=== PATIENT | female | born 1975 | race Caucasian/White ===

== ENCOUNTER 2018-11-15 | Emergency (ER) | payer SELFPAY ==
[2018-11-15 00:15] VITALS: BP 145/84
== END 2018-11-15 01:30 | disposition left against medical advice (07) ==
LOC: ER
DX: Z53.21 Procedure and treatment not carried out due to patient leaving prior to being seen by health care provider (principal); M79.606 Pain in leg, unspecified

== ENCOUNTER 2018-11-23 01:34 | Emergency (ER) | payer SELFPAY ==
--- NOTE | 2018-11-23 01:58 | ER Document Report ---
ED Medical Screen (RME) - General Chief Complaint: Leg Pain Stated Complaint: LEFT FOOT/LEG SWELLING Time Seen by Provider: 11/23/18 01:54 Mode of Arrival: Wheelchair Information source: Patient Notes: This 43-year-old female with history of diabetes complaints of left foot pain and swelling the past 6 days with no trauma. Reports she came to home [facility] on November 15 but left without being seen because we took too long. She went to another hospital had Doppler done was negative for blood clot. They treated her for muscle cramps with muscle relaxers, she took 2 vicodins she had from 2017 an d nothing is helping the pain. I offered patient a Percocet she reports it makes her deathly ill. I also offered her Toradol and she laughed at me. I have greeted and performed a rapid initial assessment of this patient. A comprehensive ED assessment and evaluation of the patient, analysis of test results and completion of the medical decision making process will be conducted by additional ED providers.
[2018-11-23 02:11] LABS: ABSOLUTE BASOPHILS # (AUTO) 0.1 10^3/uL (0.0-0.2); ABSOLUTE EOSINOPHILS # (AUTO) 0.2 10^3/uL (0.0-0.6); ABSOLUTE LYMPHOCYTES (AUTO) 2.5 10^3/uL (0.5-4.7); ABSOLUTE MONOCYTES (AUTO) 0.5 10^3/uL (0.1-1.4); ABSOLUTE NEUT (AUTO) 6.3 10^3/uL (1.7-8.2); BASOPHILS % (AUTO) 0.6 % (0-2); EOSINOPHILS % (AUTO) 2.1 % (0-6); HEMATOCRIT 33.9 % (36.0-47.0); HEMOGLOBIN 10.4 g/dL (12.0-15.5); LYMPHOCYTES % (AUTO) 26.1 % (13-45); MEAN CORPUSCULAR HEMOGLOBIN 20.8 pg (27.0-33.4); MEAN CORPUSCULAR HGB CONC 30.8 g/dL (32.0-36.0); MEAN CORPUSCULAR VOLUME 68 fl (80-97); MONOCYTES % (AUTO) 5.1 % (3-13); PLATELET COUNT 277 10^3/uL (150-450); RED BLOOD COUNT 5.01 10^6/uL (3.72-5.28); RED CELL DISTRIBUTION WIDTH 17.7 % (11.5-14.0); SEGMENTED NEUTROPHILS % (AUTO) 66.1 % (42-78); TOTAL CELLS COUNTED % (AUTO) 100 %; WHITE BLOOD COUNT 9.5 10^3/uL (4.0-10.5)
[2018-11-23 02:26] LABS: ALKALINE PHOSPHATASE 102 U/L (38-126); ANION GAP 13 (5-19); ASPARTATE AMINO TRANSFERASE 13 U/L (14-36); BILIRUBIN,DIRECT 0.1 mg/dL (0.0-0.4); BILIRUBIN,TOTAL 0.4 mg/dL (0.2-1.3); BLOOD UREA NITROGEN 8 mg/dL (7-20); CALCIUM 9.8 mg/dL (8.4-10.2); CARBON DIOXIDE 21 mmol/L (22-30); CHLORIDE 102 mmol/L (98-107); GLUCOSE 341 mg/dL (75-110); POTASSIUM 4.2 mmol/L (3.6-5.0); TOTAL PROTEIN 7.3 g/dL (6.3-8.2)
[2018-11-23 02:37] LABS: APPEARANCE,URINE SLIGHTLY-CLOUDY; BILIRUBIN,URINE NEGATIVE (NEGATIVE); COLOR,URINE YELLOW; GLUCOSE, URINE >=500 mg/dL (NEGATIVE); KETONES,URINE NEGATIVE (NEGATIVE); LEUKOCYTE ESTERASE,URINE NEGATIVE (NEGATIVE); NITRITE,URINE NEGATIVE (NEGATIVE); PROTEIN,URINE NEGATIVE (NEGATIVE); URINE SPECIFIC GRAVITY 1.025; UROBILINOGEN,URINE NEGATIVE mg/dL (<2.0)
--- NOTE | 2018-11-23 02:52 | RADIOLOGY REPORT (SQ) ---
Left foot three view on 11/23/2018 at 2:31 AM CLINICAL INDICATION: Left foot pain COMPARISON: None FINDINGS: Moderate-sized plantar calcaneal spur is noted. There are no fractures. Visualized joints are well aligned. No other bony abnormality is noted. IMPRESSION: Plantar calcaneal spur with no acute bony abnormality.
[2018-11-23] MEDS ORDERED: MORPHINE SULFATE IR 15 MG TABLET PO ONE (04:00)
--- NOTE | 2018-11-23 04:03 | ER Document Report ---
ED Extremity Problem, Lower - General Chief Complaint: Leg Swelling Stated Complaint: LEFT FOOT/LEG SWELLING Time Seen by Provider: 11/23/18 01:54 Primary Care Provider: [facility] [Provider Group] - Follow up as needed Mode of Arrival: Wheelchair Notes: Patient is a 43-year-old female that comes to the emergency department for chief complaint of left foot pain. She states that she has been very immobile recently, she states she is swelling in the left foot compared to the right, she states she had a lot more swelling towards the upper leg. She states she had a Doppler of the left leg which was negative, she also states the swelling was higher up but now is mainly in the lower leg and foot. She states since the swelling began about 3 days ago on her foot she has had a lot of pain and she cannot get any rest. She denies injury, fever/chills. She does have diabetes and her A1c is over 10 but she denies history of diabetic neuropathy. She denies previous history of blood clot, she is a former smoker. She states she recently moved back to the area and has upcoming appointments scheduled. TRAVEL OUTSIDE OF THE [place] IN LAST 30 DAYS: No Past Medical History - General Information source: Patient - Social History Smoking Status: Former Smoker Frequency of alcohol use: None Drug Abuse: None Lives with: Family Family History: Reviewed & Not Pertinent Patient has suicidal ideation: No Patient has homicidal ideation: No Endocrine Medical History: Reports: Hx Diabetes Mellitus Type 2 - Immunizations Immunizations up to date: Yes Hx Diphtheria, Pertussis, Tetanus Vaccination: Yes Review of Systems - Review of Systems Constitutional: No symptoms reported EENT: No symptoms reported Cardiovascular: No symptoms reported Respiratory: No symptoms reported Gastrointestinal: No symptoms reported Genitourinary: No symptoms reported Female Genitourinary: No symptoms reported Musculoskeletal: See HPI Skin: See HPI Hematologic/Lymphatic: No symptoms reported Neurological/Psychological: No symptoms reported Physical Exam - Vital signs Vitals: Temp Pulse Resp BP Pulse Ox 98.1 F 93 16 146/89 H 99 11/23/18 01:53 11/23/18 01:53 11/23/18 01:53 11/23/18 01:53 11/23/18 01:53 - Notes Notes: GENERAL: Alert, interacts well. HEAD: Normocephalic, atraumatic. EYES: Pupils equal, round, and reactive to light. Extraocular movements intact. ENT: Oral mucosa moist, tongue midline. Oropharynx unremarkable. Airway patent. Nares patent, no nasal septal hematoma, TM's intact. NECK: Full range of motion. Supple. Trachea midline. LUNGS: Clear to auscultation bilaterally, no wheezes, rales, or rhonchi. No respiratory distress. HEART: Regular rate and rhythm. No murmur ABDOMEN: Soft, non-tender. Non-distended. Bowel sounds present in all 4 quadrants. GENITOURINARY: Deferred EXTREMITIES: There is mild swelling of the left foot and lower leg generally, no significant pitting edema however, pulse intact at the dorsalis pedis, capillary refill and sensation intact, there is general tenderness over the top of the foot and lower leg. No abnormal erythema, induration, fluctuance, range of motion of the ankle intact, normal knee, hip exam. BACK: no cervical, thoracic, lumbar midline tenderness. No saddle anesthesia, normal distal neurovascular exam. Moves all extremities in full range of motion. NEUROLOGICAL: Alert and oriented x3. Normal speech. Cranial nerves II through XII grossly intact. PSYCH: Irritable SKIN: Warm, dry, normal turgor. No rashes or lesions noted. Course - Re-evaluation Re-evalutation: Patient has good distal pulses, normal warmth of the foot, normal coloration of the foot, there is some mild swelling on the left foot compared to the right but no severe edema. The entire foot appears to have some tenderness to palpation, patient continually states that the foot hurts. There is no injury, there is no evidence of compartment syndrome. Patient reports recent negative Doppler so I do not suspect a DVT. I suspect pain is mainly either from soft tissue swelling which might be from recent Mac's cyst rupture although this is not definite (patient did say that the swelling was mainly at the back of her leg at the knee before this resolved and the swelling was in the lower leg). My strong suspicion however is neuropathy with long-term uncontrolled insulin-dependent diabetes. Blood glucose is 300s here, patient declines treatment for this, states this is actually good for her. CBC nonspecific, chemistry nonspecific otherwise, no acidosis. X-ray with spurring of the calcaneus but patient really does not have tenderness underneath the foot suggesting plantar fasciitis component. I discussed with patient. Provided with treatment including compression stocking and diuresis, starting on gabapentin, patient was discussed with Dr. England. Discussed follow-up and return precautions. Patient does state understanding and agreement with plan. - Vital Signs Vital signs: Temp Pulse Resp BP Pulse Ox 98.2 F 79 19 160/89 H 100 11/23/18 05:03 11/23/18 05:03 11/23/18 05:03 11/23/18 05:03 11/23/18 05:03 - Laboratory Result Diagrams: 11/23/18 02:00 11/23/18 02:00 Laboratory results interpreted by me: 11/23/18 11/23/18 11/23/18 02:00 02:00 02:23 Hgb 10.4 L Hct 33.9 L MCV 68 L MCH 20.8 L MCHC 30.8 L RDW 17.7 H Sodium 136.0 L Carbon Dioxide 21 L Glucose 341 H AST 13 L Urine Glucose (UA) >=500 H Discharge - Discharge Clinical Impression: Swelling of left foot, Left foot pain, Hyperglycemia Condition: Stable Disposition: HOME, SELF-CARE Additional Instructions: The x-ray shows a spur which can be associated with repeated plantar fasciitis but no concerning findings otherwise. Your examination is most consistent with neuropathy although the soft tissue swelling could be contributing to your pain. Take the diuretic with the potassium as prescribed, use the compression stocking, start on the gabapentin for nerve pain. Consider follow-up with the pain management clinic referral, follow-up with primary care for additional adjustments and management of suspected neuropathy. Return for any concerning symptoms including developing redness, increased swelling or pain, fever/chills, or any other concerning or worsening symptoms. Prescriptions: Furosemide [Lasix 40 mg Tablet] 40 mg PO QAM #7 tablet Gabapentin [Neurontin 300 mg Capsule] 300 mg PO BID #30 cap Potassium Chloride 10 meq PO DAILY 7 Days #7 capsule.er Referrals: [facility] [Provider Group] - Follow up as needed
[2018-11-23] MEDS ORDERED: GABAPENTIN 100 MG CAPSULE PO ONE (04:50)
[2018-11-23 05:15] VITALS: BP 160/89
== END 2018-11-23 05:03 | disposition home or self-care (01) ==
LOC: ER 01:34
DX: M79.89 Other specified soft tissue disorders (principal); M79.672 Pain in left foot; E11.65 Type 2 diabetes mellitus with hyperglycemia; Z86.718 Personal history of other venous thrombosis and embolism
CPT/HCPCS: 36415; 80053; 81001; 81025; 85025; 99283

== ENCOUNTER → 2019-07-15 | Outpatient (CLI) | payer OTHER ==
--- NOTE | 2019-07-16 09:05 | RADIOLOGY REPORT (SQ) ---
EXAM DESCRIPTION: ARTERIAL LOWER EXTREM UNILAT IMAGES COMPLETED DATE/TIME: 07/15/2019 5:53 pm REASON FOR STUDY: LLE PVD I73.9 PERIPHERAL VASCULAR DISEASE, UNSPECIFIED COMPARISON: None. TECHNIQUE: Dynamic and static arriaga scale and color images acquired of the lower extremity arteries. Additional selected spectral images recorded. ABIs recorded. LIMITATIONS: None. FINDINGS: RIGHT LEG: ABIS: Not performed. OTHER: Dorsalis pedis is patent LEFT LEG: ABIS: Not performed due to decreased compressibility INFLOW ARTERIES: Triphasic inflow FEMORAL ARTERIES:Common femoral artery is patent with triphasic waveform mild elevated velocity of 20 7 cm/sec. Profunda origin is patent. SFA demonstrates triphasic waveform throughout with focal [place] elevation. No aneurysm. POPLITEAL ARTERY:Popliteal demonstrates multiphasic waveform without focal velocity elevation.. No an eurysm. PATENT TIBIOPERONEAL TRUNK AND 3 VESSEL RUNOFF: Tibioperoneal trunk is patent. Anterior tibial arter y demonstrates multiphasic waveform proximally and diminished monophasic waveform distally. Dorsalis pedis is patent with retrograde flow. Posterior tibial artery demonstrates multiphasic waveform. P eroneal demonstrates multiphasic distal flow. TBI: Not performed. OTHER: No other significant finding. IMPRESSION: 1. Left lower extremity demonstrates multiphasic inflow without focal high-grade stenos is. 2. Three-vessel runoff with diminished monophasic flow within the distal anterior tibial artery. Re trograde flow within the distal dorsalis pedis. 3. ABIs not performed due to vascular calcification. COMMENT: [facility] NORMAL: Greater than 1.0 MINIMAL DISEASE: 0.9 to 1.0 CLAUDICATION: 0.5 to 0.9 SEVERE ARTERIAL DISEASE: Less than 0.5 [facility] NORMAL: Greater than 1.0 (1.2 If Heavy Calcifications) NORMAL TO MILD ISCHEMIA: 0.8 to 1.0 MODERATE ISCHEMIA: 0.4 to 0.8 SEVERE ISCHEMIA: Less than 0.4 TECHNICAL DOCUMENTATION: JOB ID: [id number] 2010 [employer]- All Rights Reserved Reading location - IP/workstation name: [email or web address]
== END ==
LOC: RAD 14:30
PROVIDERS: ATTEND Nurse Practitioner Primary Care
DX: I73.9 Peripheral vascular disease, unspecified (principal)
CPT/HCPCS: 93926

== ENCOUNTER → 2019-09-10 | Outpatient (CLI) | payer MEDICAID, OTHER ==
--- NOTE | 2019-09-10 15:25 | RADIOLOGY REPORT (SQ) ---
EXAM DESCRIPTION: MRI LT LOWER EXTREMITY COMBO IMAGES COMPLETED DATE/TIME: 09/10/2019 1:57 pm REASON FOR STUDY: G90.50 COMPLEX REGIONAL PAIN SYNDROME I, UNSPECIFIED G90.50 COMPLEX REGIONAL PAIN SYNDROME I, UNSPECIFIED COMPARISON: None. TECHNIQUE: Multiplanar imaging of the left forefoot to include T1-weighted, postcontrast T1-weighted , and T2-weighted images. CONTRAST TYPE AND DOSE: 15 mL choose RENAL FUNCTION: Not indicated. ACR Type II contrast agent associated with few, if any, unconfounded cases of NSF LIMITATIONS: None. 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 Marrow sign al is otherwise normal without edema or fracture. SOFT TISSUES: No worrisome soft tissue edema or drainable fluid collections. Mild generalized intrin sic foot muscle hyperintense T2 signal, possible edema. Indeterminate etiology with broad differenti al including trauma, myopathy, myositis, etc. OTHER: No areas of abnormal enhancement. 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 Other findings as delfina durán. TECHNICAL DOCUMENTATION: JOB ID: [id number] 2010 [employer]- All Rights Reserved Reading location - IP/workstation name: [email or web address]
--- NOTE | 2019-09-10 15:28 | RADIOLOGY REPORT (SQ) ---
EXAM DESCRIPTION: MRI LT LOWER JOINT COMBO IMAGES COMPLETED DATE/TIME: 09/10/2019 1:57 pm REASON FOR STUDY: G90.50 COMPLEX REGIONAL PAIN SYNDROME I, UNSPECIFIED G90.50 COMPLEX REGIONAL PAIN SYNDROME I, UNSPECIFIED COMPARISON: Correlated with MRI of the forefoot from same date. TECHNIQUE: Multiplanar imaging of the ankle to include T1-weighted, postcontrast T1-weighted, and T2 -weighted images. CONTRAST TYPE AND DOSE: 15 mL Prohance. RENAL FUNCTION: Not indicated. ACR Type II contrast agent associated with few, if any, unconfounded cases of NSF LIMITATIONS: None. FINDINGS: BONE MARROW: Normal appearance. No edema or fracture or bone lesion or significant hetero geneity. SOFT TISSUES: No joint effusion. No regional soft tissue edema. No evidence of gross ligament or te ndon tear. Plantar fascia intact. OTHER: No abnormal enhancement. IMPRESSION: Unremarkable MRI of the ankle without and with contrast. TECHNICAL DOCUMENTATION: JOB ID: [id number] 2010 [employer]- All Rights Reserved Reading location - IP/workstation name: [email or web address]
== END ==
LOC: RAD 12:02
PROVIDERS: ATTEND Specialist
DX: G90.50 Complex regional pain syndrome I, unspecified (principal)
CPT/HCPCS: 82565; 73720; 73723; A9576